=== PATIENT | female | born 1985 | race American Indian/Alaskan Native ===

== ENCOUNTER 2021-01-01 09:06 | Outpatient (CLI) | payer OTHER ==
--- NOTE | 2021-01-01 09:50 | XRay Report ---
CHEST 2 VIEWS INDICATION: COUGH R05. COMPARISON: None. FINDINGS: Support devices: None. Heart: Within normal limits. Lungs/Pleura: No acute air space or interstitial disease. No significant pleural effusion. IMPRESSION: No acute findings. Signer Name: Edinson Dobbs MD Signed: 01/01/2021 9:46 AM Workstation Name: [id number]
--- NOTE | 2021-01-01 10:02 | XRay Report ---
ABDOMEN 1 VIEW(S) INDICATION / CLINICAL INFORMATION: ABDOMINAL PAIN R10.9. COMPARISON: None available. FINDINGS: TUBES / LINES: None. BOWEL GAS PATTERN: No significant abnormality. FREE AIR / EXTRALUMINAL GAS: None seen. ADDITIONAL FINDINGS: No significant additional findings. IMPRESSION: 1. No significant abnormality. Signer Name: Pavel Mckeon MD Signed: 01/01/2021 9:58 AM Workstation Name: [id number]
== END 2021-01-01 09:07 | disposition home or self-care (01) ==
LOC: SPVIMAG 09:06
PROVIDERS: ATTEND Family Medicine
DX: R05 Cough (principal); R10.9 Unspecified abdominal pain
CPT/HCPCS: 71046; 74018